=== PATIENT | male | born 1980 | race Caucasian/White ===

== ENCOUNTER → 2021-04-14 | Day surgery (SDC) | payer OTHER ==
[~2021-04-14] MED LIST: ACETAMINOPHEN 500 MG TABLET PO ONE; DEXAMETHASONE SOD PHOS 20 MG/5 ML VIAL. ONE; EPINEPHrine 30 MG/30 ML VIAL ONE; GELATIN SPONGE SIZE 12-7MM SPONGE. ONE; GLYCOPYRROLATE 1 MG/5 ML VIAL. ONE; IPRATRPIUM/ALBUTEROL 0.5/2.5MG 3 ML NEBU. NEB PRN; IV RINGERS SOLUTION,LACTATED 1,000 ML IV SCH; KETOROLAC 30 MG/ML VIAL. ONE; LIDOCAINE 1%/EPI 1:100,000 20 ML VIAL. ONE; LIDOCAINE 2% PF 5 ML VIAL. ONE; MIDAZOLAM HCL PF 2 MG/2 ML VIAL. IV ONE; MIDAZOLAM HCL PF 2 MG/2 ML VIAL. ONE; NEOMY/BACITR/POLYMYXIN OINT PACKET. TP ONE; NEOSTIGMINE 10 MG/10 ML VIAL. ONE; ONDANSETRON PF 4 MG/2 ML VIAL. IV PRN; ONDANSETRON PF 4 MG/2 ML VIAL. ONE; OXYMETAZOLINE 0.05% NASAL SPRAY 30ML BOTTLE. NS ONE; PROPOFOL 10,000 MCG/ML (20ML) VIAL IV ONE; ROCURONIUM 50 MG/5 ML VIAL. ONE; SEVOFLURANE 61 TO 120 MINUTES. IH ONE; TRAM50TA PO
[2021-04-14 11:25] VITALS: BP 126/79
--- NOTE | 2021-04-14 20:21 | OP ---
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 PROCEDURE PERFORMED: Revisional septoplasty with reduction of inferior nasal turbinates using radiofrequency. INDICATIONS: Nasal obstruction and airflow interference persistence following a primary nasal septoplasty. ANESTHESIA: General anesthetic. The blood loss is less than 10 mL. DESCRIPTION OF PROCEDURE: The patient was brought to the operating room. He was placed on the operating room table in a supine position and given a general anesthetic. When his airway was safely stabilized the table was rotated to 90 degrees. His nose was decongested using Afrin nasal spray, after which the septum was infiltrated with 1% lidocaine with epinephrine and additional decongestion was accomplished with neurosurgical cottonoids containing topical adrenaline. His face was then prepped and draped after sterile fashion. Examination of the interior of the nose revealed that there was deviation of the anterior cartilaginous septum into the left side with displacement of the foot of the cartilage from the premaxillary crest into the floor of the nose on the left. There was also compensative deviation of the septum to the right superiorly and the left inferior turbinate was prominent despite decongestion. The turbinates were then treated with radiofrequency by first injecting 1-2 mL of normal saline in the anterior portion of the inferior turbinate, after which a radiofrequency wand was inserted and radiofrequency energy applied observing contraction and reduction of the volume of the turbinate. The septum was then addressed. A curvilinear incision was made along the mucocutaneous border in the left side of the nose and dissection carried down beneath the mucoperichondrium isolating the distorted portion of the cartilaginous septum into the left side. This twisted cartilage was then isolated and removed, relieving the obstruction in the anterior segment on the left side. Dissection further beneath the mucoperichondrium was completed. It did include encountering scar tissue formation and a segment of cartilaginous and bony septum, which had been removed in the previous procedure, freeing up the mucosa from the deviated superior portion that remained was accomplished with a caudal dissector and then the segments of distorted bony septum were then removed using a Blakesley forceps. After this was completed, the septum became a midline structure. The elevated free mucosal segments were then reapproximated using a quilting type suture of chromic after which the incision site was closed with the same suture. Suction of the interior of the nose and the nasopharynx was achieved and Gelfoam was placed in the nose for stability and the procedure was completed. The patient was recovered from his anesthesia and taken to recovery room in stable condition. FELISA DR: Sulema TID: [id number]
== END | disposition home or self-care (01) ==
LOC: SURG 07:17
PROVIDERS: ATTEND Otolaryngology
DX: J34.89 Other specified disorders of nose and nasal sinuses (principal); J34.2 Deviated nasal septum; J34.3 Hypertrophy of nasal turbinates; F41.9 Anxiety disorder, unspecified; F32.9 Major depressive disorder, single episode, unspecified; Z72.89 Other problems related to lifestyle; Z87.891 Personal history of nicotine dependence
CPT/HCPCS: 30801; J0171; J0696; J1100; J1885; J2001; J2250; J2405; J2704; J2710; J3010; J3490; J7120